=== PATIENT | female | born 1935 | race Caucasian/White ===

== ENCOUNTER 2019-04-09 10:31 | Emergency (ER) | payer MEDICARE ==
--- NOTE | 2019-04-09 11:40 | CT ---
Head CT without contrast 04/09/2019: COMPARISON: 02/08/2011 HISTORY: Fall, pain TECHNIQUE: Axial CT imaging at 5 mm intervals from vertex through skull base without contrast FINDINGS: The imaged paranasal sinuses and mastoid air cells are well aerated. No displaced calvarial fracture. There is diffuse prominence of the ventricular system including the fourth ventricle, third ventricle, and lateral ventricles, significantly progressed when compared to the prior examinat ion. No intracranial hemorrhage, midline shift, or mass effect. IMPRESSION: No intracranial hemorrhage or displaced calvarial fracture. Interval development of diffu se ventriculomegaly. Findings may be on the basis of normal pressure hydrocephalus. To exclude an underlying obstructing lesion, follow-up brain MRI with and without contrast is advised
== END 2019-04-09 13:10 | disposition home or self-care (01) ==
LOC: ERS 10:31
DX: S00.81XA Abrasion of other part of head, initial encounter (principal); G93.89 Other specified disorders of brain; G30.9 Alzheimer's disease, unspecified; F02.80 Dementia in other diseases classified elsewhere, unspecified severity, without behavioral disturbance, psychotic disturbance, mood disturbance, and anxiety; E03.9 Hypothyroidism, unspecified; Z79.899 Other long term (current) drug therapy; W18.30XA Fall on same level, unspecified, initial encounter; Y93.01 Activity, walking, marching and hiking; Y92.129 Unspecified place in nursing home as the place of occurrence of the external cause
CPT/HCPCS: 70450

== ENCOUNTER 2019-12-09 20:04 | Emergency (ER) | payer MEDICARE ==
[2019-12-09 20:56] LABS: #Basophils 0.1 thou/uL (0.0-0.2); #Eosinphils 0.1 thou/uL (0.0-0.7); #Lymphocytes 1.5 thou/uL (1.20-3.40); #Monocytes 0.8 thou/uL (0.11-0.59); #Neutrophils 7.2 thou/uL (1.40-6.50); %Basophils 0.6 % (0.0-1.0); %Eosinophils 0.6 % (0.0-10.0); %Lymphocytes 15.5 % (21.0-51.0); %Monocytes 8.4 % (0.0-10.0); Hemoglobin 14.3 g/dL (12.0-16.0); Mean Corpuscular HGB CONC 33.5 g/dL (32.0-36.0); Mean Corpuscular Hemoglobin 31.2 pg (27.0-31.0); Mean Corpuscular Volume 92.9 fL (78.0-98.0); Mean Platelet Volume 7.1 fL (7.4-10.4); Platelet Count 313 thou/uL (130-400); Red Blood Cell (RBC) Count 4.58 mill/uL (4.20-5.40); White Blood Cell (WBC) Count 9.6 thou/uL (4.8-10.8)
--- NOTE | 2019-12-09 21:01 | RAD ---
PORTABLE CHEST: 12/09/19 HISTORY: Fall with diffuse pain. Heart size is enlarged. Mediastinal structures are unremarkable. The lungs are clear of infiltrates. No pneumothorax identified. No rib fractures. IMPRESSION: Cardiomegaly. POS: BONY
[2019-12-09 21:12] LABS: ALT (SGPT) 12 U/L (8-55); AST (SGOT) 15 U/L (5-34); Albumin 3.9 g/dL (3.4-4.8); Alkaline Phosphatase 73 U/L (40-110); Anion Gap 12 mmol/L (10-20); BUN (Urea Nitrogen) 28 mg/dL (9.8-20.1); Bilirubin, Total 0.5 mg/dL (0.2-1.2); Calc. Creatinine Clearance 0 mL/min (70-130); Calcium 9.2 mg/dL (7.8-10.44); Carbon Dioxide 23 mmol/L (23-31); Chloride 107 mmol/L (98-107); Estimated GFR-MDRD 50; Globulin 2.9 g/dL (2.4-3.5); Glucose 120 mg/dL (83-110); Potassium 3.7 mmol/L (3.5-5.1); Protein, Total 6.8 g/dL (6.0-8.3); Sodium 138 mmol/L (136-145)
--- NOTE | 2019-12-09 21:22 | CT ---
CT BRAIN WITHOUT CONTRAST: Date: 12/09/2019 HISTORY: Fall. Hematoma to left side of head. FINDINGS: Comparison made with exam of 04/09/2019. Diffuse ventriculomegaly is stable. No evidence of acute infarct, hemorrhage, midline shift, or abnor mal extra-axial fluid collections are seen. There are changes of chronic small vessel ischemic diseas e in the periventricular white matter. No evidence of acute infarct, hemorrhage, midline shift, or abnormal extra-axial fluid collections ar e seen. The bony calvarium is intact. The visualized paranasal sinuses and mastoid air cells are well aerated. There is a scalp contusion in the left frontal region. IMPRESSION: 1. No CT evidence of acute intracranial process. 2. Possibility of normal pressure hydrocephalus should be considered. POS: ISABEL
== END 2019-12-09 23:00 | disposition home or self-care (01) ==
LOC: ERS 20:04
DX: S01.81XA Laceration without foreign body of other part of head, initial encounter (principal); G93.89 Other specified disorders of brain; E03.9 Hypothyroidism, unspecified; W18.30XA Fall on same level, unspecified, initial encounter
CPT/HCPCS: 36415; 70450; 71045; 80053; 84484